=== PATIENT | female | born 1995 | race Caucasian/White ===

== ENCOUNTER 2021-12-01 18:31 | Emergency (ER) | payer SELFPAY ==
[~2021-12-01] VITALS: Ht 160 cm; Wt 77.0 kg
[2021-12-01 18:33] VITALS: BP 110/64
[2021-12-01] MEDS ORDERED: ACETAMINOPHEN 325MG TABLET PO ONE (19:30)
== END 2021-12-02 00:02 | disposition home or self-care (01) ==
LOC: ER 18:31
DX: M25.512 Pain in left shoulder (principal)
CPT/HCPCS: 73030; 99283